=== PATIENT | female | born 1975 | race Caucasian/White ===

== ENCOUNTER 2016-12-25 14:08 | Emergency (ER) | payer MEDICAID, OTHER ==
--- NOTE | 2016-12-25 14:29 | EDPHY ---
H & P Stated Complaint: changes in umbilical hernia/pain Time Seen by Provider: 12/25/16 14:29 HPI/ROS: CHIEF COMPLAINT: Umbilical hernia HISTORY OF PRESENT ILLNESS: The patient presents to the ED with complaints of a umbilical hernia. It has been present for some time and typically is able to be self reduced. The patient reports that she has noticed a very small area of tenderness in the area of her hernia. She has had no fever vomiting. She denies additional complaints. She has not been seen by surgeon. REVIEW OF SYSTEMS: A comprehensive 10 point review of systems is otherwise negative aside from elements mentioned in the history of present illness. Source: Patient Exam Limitations: No limitations - Personal History LMP (Females 10-55): 1-7 Days Ago Current Tetanus/Diphtheria Vaccine: Yes - Medical/Surgical History Hx Asthma: No Hx Chronic Respiratory Disease: No Hx Diabetes: No Hx Cardiac Disease: No Hx Renal Disease: No Hx Cirrhosis: No Hx Alcoholism: No Hx HIV/AIDS: No Hx Splenectomy or Spleen Trauma: No Other PMH: CONCUSSION CHILD - Social History Smoking Status: Current every day smoker - Physical Exam Exam: General Appearance: Alert, no distress Eyes: Pupils equal and round no pallor or injection ENT, Mouth: Mucous membranes moist Respiratory: There are no retractions, lungs are clear to auscultation Cardiovascular: Regular rate and rhythm Gastrointestinal: Palpable umbilical hernia on exam, small area of focal tenderness less than 0.5 cm in size most suspicious for incarcerated fat Neurological: A&O, normal motor function, normal sensory exam, normal cranial nerves Skin: Warm and dry, no rashes Musculoskeletal: Neck is supple nontender Extremities: symmetrical, full range of motion Constitutional: Initial Vital Signs Temperature (C) 36.4 C 12/25/16 14:12 Heart Rate 50 L 12/25/16 14:12 Respiratory Rate 16 12/25/16 14:12 Blood Pressure 95/27 L 12/25/16 14:12 O2 Sat (%) 98 12/25/16 14:12 O2 Delivery Mode Room Air Allergies/Adverse Reactions: Penicillins Allergy (Verified 12/25/16 14:11) Home Medications: Medication Instructions Recorded No Medications [NO HOME 1 ea MISC 07/26/11 MEDICATIONS] Medical Decision Making - Diagnostics Imaging Results: CT abdomen pelvis without contrast: Negative for evidence of an incarcerated or strangulated hernia. Images reviewed by myself and discussed with radiologist. ED Course/Re-evaluation: The patient presents to the ED with an umbilical hernia without evidence of strangulation or incarceration. The patient will be referred to our on-call general surgeon Dr. Dixon for further evaluation. She has been advised to return to the emergency department for any irreducible hernia. Departure - Departure Disposition: Home, Routine, Self-Care Clinical Impression: Umbilical hernia Condition: Good Instructions: Umbilical Hernia (ED) Additional Instructions: 1. Please return to the emergency department for a hernia which is increasing in size and will not reduce into your abdomen, for fever for severe pain or vomiting. 2. Please schedule a follow-up visit with the general surgeon you have been referred to for further management options of your hernia. Referrals: Ghassan Dixon MD [Medical Doctor] - As per Instructions
[2016-12-25 14:36] VITALS: BP 85/47
[2016-12-25 16:25] VITALS: PULSE 60; RESP 14; TEMP 97.9; O2SAT 96
== END 2016-12-25 16:24 | disposition home or self-care (01) ==
DX: K42.9 Umbilical hernia without obstruction or gangrene (principal); F17.200 Nicotine dependence, unspecified, uncomplicated

== ENCOUNTER 2017-01-29 05:17 | Day surgery (SDC) | payer MEDICAID ==
--- NOTE | 2017-01-28 21:32 | PDHPUP ---
History & Physical Update H&P update statement: This history and physical update is based on an assessment of the patient which was completed after admission or registration (within 24 hours), but prior to the surgery/procedure. Reviewed Jan 28 2100hrs.
[2017-01-29] MEDS ORDERED: CLINDAMYCIN 900 MG/DEXTROSE 50 ML IV ONE (05:42)
[2017-01-29] MEDS ORDERED: LIDOCAINE 1% 2 ML INJ ID PRN (05:42)
[2017-01-29] MEDS ORDERED: LR 1,000 ML IV ONE (05:42)
[2017-01-29] MEDS ORDERED: MIDAZOLAM 2 MG/2 ML VIAL IVP ONE (05:53)
[2017-01-29 06:47] VITALS: PULSE 51
--- NOTE | 2017-01-29 07:12 | PDANEPAE ---
ANE History of Present Illness 41 yo female with ventral hernia. ANE Past Medical History - Cardiovascular History Hx Hypertension: No Hx Arrhythmias: No Hx Chest Pain: No Hx Coronary Artery / Peripheral Vascular Disease: No Hx CHF / Valvular Disease: No Hx Palpitations: No - Pulmonary History Hx Asthma/Reactive Airway Disease: No Hx Recent Upper Respiratory Infection: No Hx Oxygen in Use at Home: No Hx Sleep Apnea: No Sleep Apnea Screening Result - Last Documented: Negative - Neurologic History Hx Cerebrovascular Accident: No Hx Seizures: No Hx Dementia: No - Endocrine History Hx Diabetes: No Hypothyroid: No Obesity: no - Renal History Hx Renal Disorders: No - Liver History Hx Hepatic Disorders: No - Neurological & Psychiatric Hx Hx Neurological and Psychiatric Disorders: No - Cancer History Hx Cancer: No - Congenital Disorder History Hx Congenital Disorders: No - Chronic Pain History Chronic Pain: Yes (low back pain, uses stretching to alleviate) - Surgical History Prior Surgeries: Biopsy left breast-2011 ANE Review of Systems Review of systems is: negative Review of Systems: - Exercise capacity METS (RN): 4 METS - Systems Constitutional: Reports: no symptoms Cardiac: Reports: no symptoms Respiratory: Reports: no symptoms ANE Patient History - Allergies Allergies/Adverse Reactions: Penicillins Allergy (Verified 01/29/17 06:31) - Home Medications Home Medications: No Medications [No Meds] 1 ea [facility] [place] [Last Taken Unknown] - NPO status NPO Since - Liquids (Date): 01/28/17 NPO Since - Liquids (Time): 22:00 NPO Since - Solids (Date): 01/28/17 NPO Since - Solids (Time): 19:00 - Anes Hx Anes Hx: no prior problems - Smoking Hx Smoking Status: Current every day smoker Marijuana use: Yes - Alcohol Use Alcohol Use: Heavy (8/week) - Family Anes Hx Family Anes Hx: neg - N/A Family Hx Anesthesia Complications: "Mother's anesthesia didnt work" for colonoscopy. Had to use alternative med to do procedure. ANE Labs/Vital Signs - Vital Signs Blood Pressure: 87/46 Heart Rate: 51 Respiratory Rate: 16 O2 Sat (%): 91 Height: 160.02 cm Weight: 45.359 kg ANE Physical Exam - Airway Neck exam: FROM Mallampati Score: Class 2 Mouth exam: normal dental/mouth exam - Pulmonary Pulmonary: other (coarse distant breath sounds) - Cardiovascular Cardiovascular: bradycardia - ASA Status ASA Status: II ANE Anesthesia Plan Anesthesia Plan: general endotracheal anesthesia
[2017-01-29] MEDS ORDERED: BUPIVACAINE 0.5% 30 ML SDV ONE (07:14)
[2017-01-29] MEDS ORDERED: MIDAZOLAM 2 MG/2 ML VIAL ONE (08:01)
[2017-01-29] MEDS ORDERED: fentaNYL 100 MCG/2 ML INJ ONE (08:02)
[2017-01-29] MEDS ORDERED: PROPOFOL/EMULSION 500 MG/50 ML BOTTLE IV ONE (08:02)
[2017-01-29] MEDS ORDERED: KETOROLAC 30 MG/1 ML SDV ONE (08:27)
[2017-01-29] MEDS ORDERED: ONDANSETRON 4 MG/2 ML VIAL ONE (08:27)
[2017-01-29] MEDS ORDERED: NEOSTIGMINE METHYLSULFATE 3 MG/3 ML SYR ONE (08:31)
[2017-01-29] MEDS ORDERED: GLYCOPYRROLATE 0.2 MG/1 ML VIAL ONE (08:31)
[2017-01-29] MEDS ORDERED: NALOXONE HCL 0.4 MG/ML INJ IVP PRN (08:56)
[2017-01-29] MEDS ORDERED: ALBUTEROL 3 ML DEYVIAL IH PRN (08:56)
[2017-01-29] MEDS ORDERED: fentaNYL 100 MCG/2 ML INJ IVP PRN (08:56)
[2017-01-29] MEDS ORDERED: LR 500 ML IV PRN (08:56)
[2017-01-29] MEDS ORDERED: HYDROCODONE/APAP 5/325 TAB PO PRN (08:56)
[2017-01-29] MEDS ORDERED: ACETAMINOPHEN 500 MG TAB PO PRN (08:56)
[2017-01-29] MEDS ORDERED: PROMETHAZINE HCL 25 MG/ML INJ IVP PRN (08:56)
[2017-01-29] MEDS ORDERED: NICOTINE 21 MG/24 HR PATCH TD ONE (08:57)
--- NOTE | 2017-01-29 09:00 | POSTOPPROG ---
Post Op Note Date of Operation: 01/29/17 Surgeon: Ghassan Dixon Pasteuriser Operator: Hawk Rivers Anesthesiologist: Dr Llamas Anesthesia: GET(General Endotracheal) Pre-op Diagnosis: ventral hernia Post-op Diagnosis: ventral hernia Indication: pain Procedure: open VH repiar (no mesh) Findings: small hernia Inf/Abcess present in the surg proc area at time of surgery?: No Depth: Deep Incisional (Fascial) EBL: Minimal
[2017-01-29 09:52] VITALS: TEMP 97.5
[2017-01-29 10:46] VITALS: BP 90/67; RESP 16; O2SAT 94
--- NOTE | 2017-01-29 11:12 | POSTANESTH ---
Post Anesthetic Evaluation Cardiovascular Status: Normal, Stable, Similar to Pre-Op Cond Respiratory Status: Normal, Stable, Similar to Pre-op Cond. Level of Consciousness/Mental Status: Can Participate in Eval, Moderately Sleepy Pain Control: Adequate, Prn Tx Ordered Nausea/Vomiting Control: Adequate, Prn Tx Ordered Complications Possibly Related to Anesthesia: None Noted
--- NOTE | 2017-02-08 11:56 | GOP ---
[f rep st] OPERATIVE REPORT DATE OF OPERATION: 01/29/2017 SURGEON: Ghassan Dixon MD NAILING MACHINE OPERATOR AUTOMATIC: GORDON Conde ANESTHESIOLOGIST: Dr. Howard. PREOPERATIVE DIAGNOSIS: Ventral hernia. POSTOPERATIVE DIAGNOSIS: Ventral hernia. PROCEDURE PERFORMED: Open ventral hernia repair. FINDINGS: ESTIMATED BLOOD LOSS: Negligible. DESCRIPTION OF PROCEDURE: The patient taken to the operating room where she received satisfactory ge neral endotracheal anesthesia by Dr. Howard. She was placed in the supine position, prepped and laura ped in usual sterile fashion. A transverse supraumbilical incision was made and dissection carried d own through subcutaneous tissue. Hemostasis was assured. The hernia defect was dissected free from surrounding subcutaneous tissue and the skin of the area. The sac was dissected back to the fascial level where the sac was opened and its contents reduced. The defect itself was less than 1 cm. Hemo stasis was assured and the defect was closed with a 0 Surgilon [id number] sutures. Wound was in filtrated with 0.5% Marcaine. Subcu was closed with 3-0 Vicryl and skin with a 4-0 Monocryl subcutic ular stitch. She tolerated procedure well, taken to recovery room in good condition. /[id number]/MODL
== END 2017-01-29 11:05 | disposition home or self-care (01) ==
LOC: FSGY 05:17
PROVIDERS: ATTEND Surgery
PROC: 0WQF0ZZ Repair Abdominal Wall, Open Approach (ICD-10-PCS; principal; 2017-01-29 08:15)
DX: K43.9 Ventral hernia without obstruction or gangrene (principal); F17.210 Nicotine dependence, cigarettes, uncomplicated; Z88.0 Allergy status to penicillin
CPT/HCPCS: J1885; J2250; J2405; J2704; J2710; J3010

== ENCOUNTER 2018-01-02 04:55 | Emergency (ER) | payer SELFPAY ==
--- NOTE | 2018-01-02 05:21 | EDPHY ---
H & P Stated Complaint: upper mid abd pain since 0200 Time Seen by Provider: 01/02/18 05:21 HPI/ROS: HPI CHIEF COMPLAINT: Abdominal pain. HISTORY OF PRESENT ILLNESS: 42-year-old female, presents emergency room with mid abdominal pain. She states this woke from sleep around 2:00 a.m.. Rather intense and severe. Currently 6/10. Mid abdomen. Located between her epigastric region and umbilicus. She has had nausea but no vomiting. She states that she suffers from chronic diarrhea and has had diarrhea for 2 years no change. Denies fever. She did have 3 shots of alcohol last night. Smokes tobacco daily and marijuana. She states recently she has been drinking alcohol daily. Denies any chest pain or shortness of breath. Main complaint mid abdominal pain. Sharp stabbing pain. Past Medical History: Denies significant medical history Past Surgical History: Umbilical hernia repair Social History: Current use of daily alcohol 3 shots last night, daily use tobacco and daily use of marijuana. Resides at [place]. Family History: Noncontributory ROS REVIEW OF SYSTEMS: 10 Systems were reviewed and negative with the exception of the elements mentioned in the history of present illness. Exam Constitutional triage nursing summary reviewed, vital signs reviewed, awake/ alert. Eyes normal conjunctivae and sclera, EOMI, PERRLA. HENT normal inspection, atraumatic, moist mucus membranes, no epistaxis, neck supple/ no meningismus, no raccoon eyes. Respiratory clear to auscultation bilaterally, normal breath sounds, no respiratory distress, no wheezing. Cardiovascular rate normal, regular rhythm, no murmur, no edema, distal pulses normal. Gastrointestinal mild tender palpation mid abdomen, no peritoneal signs, no rebound, no guarding, normal bowel sounds, no distension, no pulsatile mass. Genitourinary no CVA tenderness. Musculoskeletal no midline vertebral tenderness, full range of motion, no calf swelling, no tenderness of extremities, no meningismus, good pulses, neurovascularly intact. Skin pink, warm, & dry, no rash, skin atraumatic. Neurologic awake, alert and oriented x 3, AAOx3, moves all 4 extremities equally, motor intact, sensory intact, CN II-XII intact, normal cerebellar, normal vision, normal speech. Psychiatric normal mood/affect. Heme/Lymph/Immune no lymphadenopathy. Differential diagnosis includes but is not limited to and in no particular order : Bowel obstruction, appendicitis, gallbladder disease, diverticulitis, colitis , enteritis, perforated viscus, gastritis, GERD, esophagitis, urinary tract infection, pyelonephritis, kidney stones Medical Decision Making: Plan for this patient IV establishment IV fluid bolus , check basic blood work, IV fluids, IV nausea medicine, IV pain medicine. CT scan abdomen pelvis with IV contrast. Re-evaluate. Re-evaluation: EKG interpretation by me on record in [facility] system. Impression time of EKG 5:48: Sinus bradycardia rate 48. No signs of acute ischemia no ST elevation no ST depression no T-wave abnormalities. CT scan abdomen pelvis with IV contrast shows no acute inflammatory process. Constipation present. Called to me by Dr. Ramsay. I reviewed the patient's blood work. Mildly elevated LFTs. Otherwise lipase normal electrolytes are normal CBC normal. Electrolytes appropriate. I do recommend the patient refrain from drinking alcohol. Antacid medication Zantac as prescribed. Return emergency room worsening abdominal pain fever vomiting. 0654: Patient re-examined at this time abdomen is soft nontender. Blood work reviewed. CT scan reviewed. Possible gastritis. I recommend she cut back on her alcohol, tobacco marijuana use. Recommend antacid medication Recommend Carafate and Zantac Follow up with GI. Return precautions discussed with the patient she understands return emergency room if develops worsening abdominal pain, fever, vomiting. She is comfortable this plan. Source: Patient - Personal History LMP (Females 10-55): 1-7 Days Ago Current Tetanus/Diphtheria Vaccine: Yes Current Tetanus Diphtheria and Acellular Pertussis (TDAP): Yes - Medical/Surgical History Hx Asthma: No Hx Chronic Respiratory Disease: No Hx Diabetes: No Hx Cardiac Disease: No Hx Renal Disease: No Hx Cirrhosis: No Hx Alcoholism: No Hx HIV/AIDS: No Hx Splenectomy or Spleen Trauma: No Other PMH: CONCUSSION CHILD, breast biopsy, hernia surgery - Social History Smoking Status: Current every day smoker Constitutional: Initial Vital Signs Temperature (C) 36.6 C 01/02/18 04:55 Heart Rate 76 01/02/18 04:55 Respiratory Rate 16 01/02/18 04:55 Blood Pressure 94/67 L 01/02/18 04:55 O2 Sat (%) 95 01/02/18 04:55 O2 Delivery Mode Room Air Allergies/Adverse Reactions: Penicillins Allergy (Verified 01/02/18 05:01) Home Medications: Medication Instructions Recorded No Medications [No Meds] 1 ea MISC 07/26/11 Ranitidine HCl [Zantac] 150 mg PO DAILY #14 tablet 01/02/18 Sucralfate [Carafate 1 GM (*)] 1 gm PO ACHS #14 tab 01/02/18 Medical Decision Making - Data Points Laboratory Results: Laboratory Results 01/02/18 05:30 01/02/18 05:30 01/02/18 01/02/18 01/02/18 06:46 05:31 05:30 WBC RBC Hgb Hct MCV MCH MCHC RDW Plt Count MPV Neut % (Auto) Lymph % (Auto) [place] % (Auto) Eos % (Auto) Baso % (Auto) Nucleat RBC Rel Count Absolute Neuts (auto) Absolute Lymphs (auto) Absolute Monos (auto) Absolute Eos (auto) Absolute Basos (auto) Absolute Nucleated RBC Immature Gran % Immature Gran # PT INR APTT VBG Lactic Acid Sodium Potassium Chloride Carbon Dioxide Anion Gap BUN Creatinine Estimated GFR Glucose Calcium Total Bilirubin Conjugated Bilirubin Unconjugated Bilirubin AST ALT Alkaline Phosphatase POC Troponin I 0.00 ng/mL ng/mL (0.00-0.08) Total Protein Albumin Lipase Beta HCG, Qual NEGATIVE Urine Color YELLOW Urine Appearance HAZY Urine pH 5.0 (5.0-7.5) Ur Specific [place] > 1.035 H (1.002-1.030) Urine Protein NEGATIVE (NEGATIVE) Urine Ketones NEGATIVE (NEGATIVE) Urine Blood NEGATIVE (NEGATIVE) Urine Nitrate NEGATIVE (NEGATIVE) Urine Bilirubin NEGATIVE (NEGATIVE) Urine Urobilinogen 2.0 EU H EU (0.2-1.0) Ur Leukocyte Esterase NEGATIVE (NEGATIVE) Urine Glucose NEGATIVE (NEGATIVE) 01/02/18 01/02/18 01/02/18 05:30 05:30 05:30 WBC 6.11 10^3/uL 10^3/uL (3.80-9.50) RBC 4.22 10^6/uL 10^6/uL (4.18-5.33) Hgb 13.9 g/dL g/dL (12.6-16.3) Hct 41.5 % % (38.0-47.0) MCV 98.3 fL fL (81.5-99.8) MCH 32.9 pg pg (27.9-34.1) MCHC 33.5 g/dL g/dL (32.4-36.7) RDW 12.8 % % (11.5-15.2) Plt Count 267 10^3/uL 10^3/uL (150-400) MPV 9.0 fL fL (8.7-11.7) Neut % (Auto) 55.8 % % (39.3-74.2) Lymph % (Auto) 30.3 % % (15.0-45.0) [place] % (Auto) 9.5 % % (4.5-13.0) Eos % (Auto) 3.6 % % (0.6-7.6) Baso % (Auto) 0.5 % % (0.3-1.7) Nucleat RBC Rel Count 0.0 % % (0.0-0.2) Absolute Neuts (auto) 3.41 10^3/uL 10^3/uL (1.70-6.50) Absolute Lymphs (auto) 1.85 10^3/uL 10^3/uL (1.00-3.00) Absolute Monos (auto) 0.58 10^3/uL 10^3/uL (0.30-0.80) Absolute Eos (auto) 0.22 10^3/uL 10^3/uL (0.03-0.40) Absolute Basos (auto) 0.03 10^3/uL 10^3/uL (0.02-0.10) Absolute Nucleated RBC 0.00 10^3/uL 10^3/uL (0-0.01) Immature Gran % 0.3 % % (0.0-1.1) Immature Gran # 0.02 10^3/uL 10^3/uL (0.00-0.10) PT 12.4 SEC SEC (12.0-15.0) INR 0.90 (0.83-1.16) APTT 24.9 SEC SEC (23.0-38.0) VBG Lactic Acid Sodium 139 mEq/L mEq/L (135-145) Potassium 4.4 mEq/L mEq/L (3.3-5.0) Chloride 110 mEq/L mEq/L (97-110) Carbon Dioxide 24 mEq/l mEq/l (22-31) Anion Gap 5 mEq/L L mEq/L (6-14) BUN 11 mg/dL mg/dL (7-23) Creatinine 0.5 mg/dL L mg/dL (0.6-1.0) Estimated GFR > 60 Glucose 84 mg/dL mg/dL (70-100) Calcium 9.1 mg/dL mg/dL (8.5-10.4) Total Bilirubin 0.2 mg/dL mg/dL (0.1-1.4) Conjugated Bilirubin 0.2 mg/dL mg/dL (0.0-0.5) Unconjugated Bilirubin 0.0 mg/dL mg/dL (0.0-1.1) AST 101 IU/L H IU/L (14-46) ALT 136 IU/L H IU/L (9-52) Alkaline Phosphatase 39 IU/L IU/L (38-126) POC Troponin I Total Protein 6.3 g/dL g/dL (6.3-8.2) Albumin 3.8 g/dL g/dL (3.5-5.0) Lipase 176 IU/L IU/L (23-300) Beta HCG, Qual Urine Color Urine Appearance Urine pH Ur Specific [place] Urine Protein Urine Ketones Urine Blood Urine Nitrate Urine Bilirubin Urine Urobilinogen Ur Leukocyte Esterase Urine Glucose 01/02/18 05:30 WBC RBC Hgb Hct MCV MCH MCHC RDW Plt Count MPV Neut % (Auto) Lymph % (Auto) [place] % (Auto) Eos % (Auto) Baso % (Auto) Nucleat RBC Rel Count Absolute Neuts (auto) Absolute Lymphs (auto) Absolute Monos (auto) Absolute Eos (auto) Absolute Basos (auto) Absolute Nucleated RBC Immature Gran % Immature Gran # PT INR APTT VBG Lactic Acid 1.3 mmol/L mmol/L (0.7-2.1) Sodium Potassium Chloride Carbon Dioxide Anion Gap BUN Creatinine Estimated GFR Glucose Calcium Total Bilirubin Conjugated Bilirubin Unconjugated Bilirubin AST ALT Alkaline Phosphatase POC Troponin I Total Protein Albumin Lipase Beta HCG, Qual Urine Color Urine Appearance Urine pH Ur Specific [place] Urine Protein Urine Ketones Urine Blood Urine Nitrate Urine Bilirubin Urine Urobilinogen Ur Leukocyte Esterase Urine Glucose Medications Given: Discontinued Medications Sodium Chloride (Ns) 1,000 mls @ 0 mls/hr IV EDNOW ONE; Wide Open PRN Reason: Protocol Stop: 01/02/18 05:26 Last Admin: 01/02/18 05:43 Dose: 1,000 mls Point of Care Test Results: Chemistry 01/02/18 05:31 POC Troponin I 0.00 ng/mL ng/mL (0.00-0.08) Departure - Departure Disposition: Home, Routine, Self-Care Clinical Impression: Abdominal pain Qualifiers: Abdominal location: unspecified location Qualified Code(s): R10.9 - Unspecified abdominal pain Gastritis Qualifiers: Gastritis type: unspecified gastritis Chronicity: acute Gastritis bleeding: without bleeding Qualified Code(s): K29.00 - Acute gastritis without bleeding Condition: Good Instructions: Acute Abdominal Pain (ED) Additional Instructions: 1. Recommend he refrain from drinking alcohol. 2. Antacid as prescribed. 3. Return emergency room if worsening abdominal pain fever vomiting. Referrals: VERONICA RALPH [Other] - As per Instructions Raymond Rose MD, FACG [Medical Doctor] - As per Instructions Prescriptions: Ranitidine HCl [Zantac] 150 mg PO DAILY #14 tablet Sucralfate [Carafate 1 GM (*)] 1 gm PO ACHS #14 tab
[2018-01-02] MEDS ORDERED: NS 1,000 ML IV ONE (05:25)
[2018-01-02] MEDS ORDERED: HYDROmorphONE/DILAUDID 2 MG/ML INJ IVP ONE (05:25)
[2018-01-02] MEDS ORDERED: ONDANSETRON 4 MG/2 ML VIAL IVP ONE (05:25)
[2018-01-02 05:41] LABS: PLATELET COUNT 267 10^3/uL (150-400)
[2018-01-02 05:49] LABS: INR 0.9 (0.83-1.16); PROTIME(PATIENT) 12.4 SEC (12.0-15.0)
[2018-01-02] MEDS ORDERED: IOPAMIDOL (ISOVUE-300) 100 ML BTL ONE (05:50)
[2018-01-02 07:07] VITALS: BP 91/64
--- NOTE | 2018-01-02 08:21 | CPEKG ---
Test Reason : OPEN Blood Pressure : / mmHG Vent. Rate : 048 BPM Atrial Rate : 047 BPM P-R Int : 150 ms QRS Dur : 092 ms QT Int : 444 ms P-R-T Axes : 066 081 064 degrees QTc Int : 397 ms Sinus bradycardia Low voltage with right axis deviation Confirmed by Conrado Samson ([id number]) on 01/02/2018 8:19:45 AM Referred By: Confirmed By:Conrado Samson
== END 2018-01-02 07:05 | disposition home or self-care (01) ==
DX: K29.00 Acute gastritis without bleeding (principal); E86.9 Volume depletion, unspecified; F17.200 Nicotine dependence, unspecified, uncomplicated; F10.10 Alcohol abuse, uncomplicated
CPT/HCPCS: 84484-PO; J1170; J2405; Q9967